=== PATIENT | female | born 1995 | race Caucasian/White ===

== ENCOUNTER 2024-05-07 10:59 | Emergency (ER) | payer OTHER ==
[2024-05-07 12:40] LABS: #Basophils 0.01 10x3/uL (0.0-0.2); #Eosinophils 0.09 10x3/uL (0.0-0.5); #Monocytes 0.38 10x3/uL (0.0-1.1); %Basophils 0.2 % (0.0-2.0); %Eosinophils 1.6 % (0.0-6.0); %Monocytes 6.6 % (0.0-10.0); %Neutrophils 60.4 % (40.0-75.0); Hematocrit 35.9 % (34.9-44.5); Mean Corpuscular HGB CONC 30.6 g/dL (32.0-36.0); Mean Corpuscular Hemoglobin 26.5 pg (27.0-33.0); Mean Corpuscular Volume 86.5 fL (81.6-98.3); Mean Platelet Volume 9.4 fL (7.4-10.4); Platelet Count 203 10x3/uL (150-450); RBC Distribution Width 14.6 % (11.5-14.5); Red Blood Cell (RBC) Count 4.15 10x6/uL (3.90-5.03); White Blood Cell (WBC) Count 5.8 10x3/uL (3.5-10.5)
[2024-05-07] MEDS ORDERED: Ondansetron ODT 4 MG TAB ONE (12:45)
[2024-05-07] MEDS ORDERED: Acetaminophen 500 MG TAB ONE (12:45)
[2024-05-07 12:54] LABS: ALT (SGPT) 17 U/L (8-55); AST (SGOT) 16 U/L (5-34); Albumin 3.3 g/dL (3.5-5.0); Alkaline Phosphatase 54 U/L (40-110); Anion Gap 12 mmol/L (10-20); BUN (Urea Nitrogen) 10 mg/dL (7.0-18.7); Bilirubin, Total 0.3 mg/dL (0.2-1.2); Calc. Creatinine Clearance 0 mL/min (70-130); Calcium 9.4 mg/dL (7.8-10.44); Carbon Dioxide 22 mmol/L (22-29); Chloride 103 mmol/L (98-107); Estimated GFR 119; Globulin 4.1 g/dL (2.4-3.5); Glucose 87 mg/dL (70-105); Potassium 3.7 mmol/L (3.5-5.1); Protein, Total 7.4 g/dL (6.0-8.3); Sodium 133 mmol/L (136-145)
[2024-05-07 13:15] LABS: Bilirubin Neg (Negative); Blood, Urine Negative (Negative); Clarity Slightly Cloudy (Clear); Glucose, Urine (Dipstick) Normal (Negative); Ketone, Urine Negative (Negative); Leukocyte 25 (Negative); Nitrite Negative (Negative); Protein, Urine (Dipstick) Negative (Neg-Trace); Urobilinogen Normal mg/dL (Less than 2)
[2024-05-07 13:41] LABS: Bacteria/HPF 1+ HPF (None Seen); CAUTI Indications for Culture Pelvic or flank pain; RBC/HPF 0-3 HPF (0-3)
[2024-05-07 13:42] LABS: Urine Culture Reflex No No
== END 2024-05-07 17:38 | disposition home or self-care (01) ==
LOC: CSHERS 10:59
DX: O26.851 Spotting complicating pregnancy, first trimester (principal); Z3A.10 10 weeks gestation of pregnancy
CPT/HCPCS: 76856; 80053; 81001; 83690; 84702; 85025; 86900; 86901; 90384; 96372; Q0162

== ENCOUNTER 2024-07-12 14:59 | Emergency (ER) | payer OTHER ==
[2024-07-12] MEDS ORDERED: Ondansetron ODT 4 MG TAB ONE (15:40)
[2024-07-12] MEDS ORDERED: Ipratropium/Albuterol 3 ML NEB ONE (15:56)
[2024-07-12 16:20] LABS: #Basophils Less than 0.03 10x3/uL (0.0-0.2); #Eosinophils 0.04 10x3/uL (0.0-0.5); #Monocytes 0.26 10x3/uL (0.0-1.1); #Neutrophils 1.82 10x3/uL (1.5-8.4); %Basophils 0.3 % (0.0-2.0); %Eosinophils 1.3 % (0.0-6.0); %Lymphocytes 30.9 % (18.0-47.0); %Monocytes 8.4 % (0.0-10.0); %Neutrophils 58.5 % (40.0-75.0); Hematocrit 33.8 % (34.9-44.5); Hemoglobin 10.7 g/dL (12.0-15.5); Mean Corpuscular HGB CONC 31.7 g/dL (32.0-36.0); Mean Corpuscular Hemoglobin 28.7 pg (27.0-33.0); Mean Corpuscular Volume 90.6 fL (81.6-98.3); Mean Platelet Volume 9.6 fL (7.4-10.4); Platelet Count 168 10x3/uL (150-450); RBC Distribution Width 15.1 % (11.5-14.5); Red Blood Cell (RBC) Count 3.73 10x6/uL (3.90-5.03); White Blood Cell (WBC) Count 3.11 10x3/uL (3.5-10.5)
[2024-07-12 16:38] LABS: ALT (SGPT) 39 U/L (8-55); AST (SGOT) 39 U/L (5-34); Albumin 2.7 g/dL (3.5-5.0); Alkaline Phosphatase 84 U/L (40-110); Anion Gap 12 mmol/L (10-20); BUN (Urea Nitrogen) 8 mg/dL (7.0-18.7); Bilirubin, Total 0.3 mg/dL (0.2-1.2); Calc. Creatinine Clearance 0 mL/min (70-130); Calcium 8.7 mg/dL (7.8-10.44); Carbon Dioxide 21 mmol/L (22-29); Chloride 105 mmol/L (98-107); Estimated GFR 121; Globulin 4.4 g/dL (2.4-3.5); Glucose 81 mg/dL (70-105); Potassium 3.4 mmol/L (3.5-5.1); Protein, Total 7.1 g/dL (6.0-8.3); Sodium 135 mmol/L (136-145)
== END 2024-07-12 17:02 | disposition home or self-care (01) ==
LOC: CSHERS 14:59
DX: J11.1 Influenza due to unidentified influenza virus with other respiratory manifestations (principal); Z55.0 Illiteracy and low-level literacy
CPT/HCPCS: 36415; 80053; 85025; 87428; 94640; 96360; 99284; J7620; Q0162

== ENCOUNTER 2024-07-28 15:38 | Outpatient (CLI) | payer OTHER | END 2024-07-28 15:39 | disposition home or self-care (01) | LOC: CSHULT 15:38 | DX: O09.92 Supervision of high risk pregnancy, unspecified, second trimester (principal); Z3A.21 21 weeks gestation of pregnancy | CPT/HCPCS: 76805; 76810 ==